=== PATIENT | male | born 1960 | race African-American/Black ===

== ENCOUNTER 2022-10-18 04:54 | Day surgery (SDC) | payer OTHER ==
[2022-10-17 11:33] VITALS: BMI 35.9
[~2022-10-18 04:54] MED LIST: BUPIVACAINE HCL/PF 0.25% (2.5MG/ML) 10 ML VIAL IJ ONE; TRIAMCINOLONE ACET 40MG/1ML VIAL IJ ONE; ceFAZolin SODIUM 1 GM VIAL IVPB ONE
[2022-10-18 11:52] LABS: POTASSIUM 3.9 mmol/L (3.5-5.1)
[2022-10-18 11:54] LABS: CALCIUM 8.9 mg/dL (8.5-10.1)
[2022-10-18 11:55] LABS: ALBUMIN 4.4 g/dl (3.4-5.0)
[2022-10-18 11:57] LABS: CREATININE 1.4 mg/dL (0.55-1.3)
[2022-10-18 11:59] LABS: BILIRUBIN,TOTAL 0.5 mg/dL (0.2-1); TOT PROT 8.5 g/dl (6.4-8.2)
[2022-10-18] MEDS ORDERED: BUPIVACAINE HCL/PF 0.25% (2.5MG/ML) 10 ML VIAL ONE (13:35)
[2022-10-18] MEDS ORDERED: PROPOFOL 40 ML ONE (14:19)
[2022-10-18] MEDS ORDERED: MIDAZOLAM HCL 2 MG/2 ML SINGLE DOSE VIAL ONE (14:19)
[2022-10-18] MEDS ORDERED: LIDOCAINE HCL/PF 2% SDV 5ML VIAL ONE (14:21)
[2022-10-18] MEDS ORDERED: ROCURONIUM BROMIDE 50 MG/5 ML SYRINGE ONE (14:23)
[2022-10-18] MEDS ORDERED: SUGAMMADEX SODIUM 200 MG/2 ML VIAL ONE ×3 (14:23→14:25)
[2022-10-18] MEDS ORDERED: DEXAMETHASONE SOD PHOSPHATE 4 MG/1 ML VIAL ONE ×2 (14:51→15:46)
[2022-10-18] MEDS ORDERED: TRIAMCINOLONE ACET 40MG/1ML VIAL ONE (14:51)
[2022-10-18] MEDS ORDERED: HEPARIN NA (PORCINE) 5,000 UNITS/ML 1ML VIAL ONE (14:51)
[2022-10-18] MEDS ORDERED: ceFAZolin SODIUM 1 GM VIAL IVPB ONE (14:54)
[2022-10-18] MEDS ORDERED: HEPARIN NA (PORCINE) 5,000 UNITS/ML 1ML VIAL SQ ONE (14:55)
[2022-10-18] MEDS ORDERED: BUPIVACAINE HCL/PF 0.25% (2.5MG/ML) 10 ML VIAL IJ ONE ×2 (15:16)
[2022-10-18] MEDS ORDERED: TRIAMCINOLONE ACET 40MG/1ML VIAL IJ ONE (15:39)
[2022-10-18] MEDS ORDERED: ONDANSETRON 4 MG/2 ML VIAL ONE (15:46)
[2022-10-18] MEDS ORDERED: ONDANSETRON 4 MG/2 ML VIAL IVPUSH PRN (16:15)
[2022-10-18] MEDS ORDERED: PROMETHAZINE HCL 25 MG/1 ML VIAL IVPB PRN (16:15)
[2022-10-18] MEDS ORDERED: LACTATED RINGERS SOLUTION 1,000 ML IV SCH (16:15)
[2022-10-18] MEDS ORDERED: SODIUM CHLORIDE 1,000 ML IV SCH (16:15)
[2022-10-18] MEDS ORDERED: ACETAMINOPHEN 1000 MG/100 ML BAG IVPB PRN (16:22)
[2022-10-18 16:59] LABS: BASO % 1.2 % (0-2.0); EOS % 3.3 % (0-4.5); HEMATOCRIT 38.7 % (35.4-49); HEMOGLOBIN 12.8 GM/dL (11.7-16.9); LYMPH % 34.5 % (8-40); MCH 29.1 pg (25.7-33.7); MCHC 33.1 g/dl (32.0-35.9); MEAN CELL VOLUME 87.7 fl (80-96); MEAN PLT VOLUME 7.3 fl (7.5-11.1); MONO % 7.7 % (3.8-10.2); NEUT % 53.3 % (42.8-82.8); PLATELET COUNT 295 10^3/uL (134-434); RBC 4.41 M/mm3 (4.00-5.60); RDW 14.8 % (11.9-15.9); WHITE BLOOD COUNT 11.8 K/mm3 (4.0-10.0)
[2022-10-18 17:44] LABS: POTASSIUM 3.8 mmol/L (3.5-5.1)
[2022-10-18 17:45] LABS: CALCIUM 8.5 mg/dL (8.5-10.1)
[2022-10-18 17:46] LABS: BLOOD UREA NITROGEN 12.2 mg/dL (7-18)
[2022-10-18 17:49] LABS: CREATININE 1.6 mg/dL (0.55-1.3)
[2022-10-18 18:46] VITALS: RESP 18
[2022-10-18 19:22] VITALS: BP 137/87; PULSE 98; TEMP 98.1
== END 2022-10-18 19:15 | disposition home or self-care (01) ==
LOC: JASU-SURG 04:54
PROVIDERS: ATTEND Surgery
PROC: 0YQA0ZZ Repair Bilateral Inguinal Region, Open Approach (ICD-10-PCS; principal; 2022-10-18 12:30)
DX: K40.20 Bilateral inguinal hernia, without obstruction or gangrene, not specified as recurrent (principal)
CPT/HCPCS: 49505; S2900; 36415; 80048; 80053; 84484; 85025; 86850; 86900; 86901; 93005; 93010; 94760; J1644